=== PATIENT | male | born 1940 | race Caucasian/White ===

== ENCOUNTER 2017-02-24 10:42 | Emergency (ER) | payer OTHER ==
[~2017-02-24] VITALS: Ht 172.7 cm; Wt 74.9 kg
[~2017-02-24 10:42] MED LIST: ASPIRIN EC81 M1 PO; ASPIRIN325 PO; AUGMENTIN 875875 M1 PO; CELEBREX 200 M200 MG PO; CENTRUM SILVER1 EAC2 PO; CENTRUM TABLET1 EACH PO; CLARITIN10 MG PO; GABAPENTIN 100100 MG PO; HYDROCODON-ACE1 EAC7; HYDROCODON-ACE1 EAC7 PO; HYDROCODON-ACE1 EACH PO; HYDROCODONE-AP1 EAC6 PO; IRON325 PO; LATANOPROST 0.2.5 ML; LIPITOR10 MG PO; LORTAB PO; LUPRON DEPOT45 MG INJ; METAMUCIL PAC1 UDPKT PO; SORINE 80 MG TA80 M1 PO; TAMSULOSIN HCL0.4 M1; TRAMADOL 50 MG50 MG PO; XARELTO20 MG PO
[2017-02-24] MEDS ORDERED: ASPIR 8181 MG PO (11:15)
[2017-02-24] MEDS ORDERED: CENTRUM SILVER1 EAC4 PO (11:15)
== END 2017-02-24 11:36 | disposition home or self-care (01) ==
LOC: ER 10:42
DX: S05.12XA Contusion of eyeball and orbital tissues, left eye, initial encounter (principal); Z90.49 Acquired absence of other specified parts of digestive tract; Z98.890 Other specified postprocedural states; Z91.013 Allergy to seafood; X58.XXXA Exposure to other specified factors, initial encounter; Y93.89 Activity, other specified; Y92.89 Other specified places as the place of occurrence of the external cause; Y99.8 Other external cause status

== ENCOUNTER 2019-02-25 05:21 | Day surgery (SDC) | payer OTHER ==
[~2019-02-25] VITALS: Ht 172.7 cm; Wt 70.3 kg
[~2019-02-25 05:21] MED LIST changes: +ASPIR 8181 MG PO; +CENTRUM SILVER1 EAC4 PO; +TYLENOL325 MG PO
[2019-02-25 09:12] VITALS: BP 155/66
[2019-02-25] MEDS ORDERED: PERCOCET 7.5-31 EACH PO (12:06)
[2019-02-25 12:25] VITALS: BP 155/66
--- NOTE | 2019-03-02 14:35 | O ---
Formerly [facility] [place] [address] OPERATIVE REPORT Name: LAQUITA ALONZO Room #: DEP [facility] [place] M..#: [id number] Admission: 02/25/19 ������������������ Attend Phys: Florentin Dimas MD Discharge: 02/25/19 ������������������ Date of : 40 Report #: [id number] THIS REPORT FOR: //name// CC: Chalo Dimas DATE OF SERVICE: 02/25/2019 PREOPERATIVE DIAGNOSIS: Right second hammer toe. POSTOPERATIVE DIAGNOSIS: Right second hammer toe. PROCEDURE: Right second toe amputation. SURGEON: Florentin Dimas M.D. ANESTHESIA: General. ESTIMATED BLOOD LOSS: Minimal. TOURNIQUET TIME: 15 minutes. DESCRIPTION OF PROCEDURE: The patient brought to the operating room where he was placed under general anesthesia. Once under adequate general anesthesia, his right lower extremity was prepped and draped in sterile manner. The extremity was elevated, exsanguinated, tourniquet placed 300 mmHg. A fishmouth type incision was then made about the proximal phalanx of the second toe. This was dissected directly down to the bone. Exposure was made of the proximal phalanx and a sagittal saw was then used to transect the proximal phalanx. The toe was then and amputation was complete. The wound was irrigated copiously and closed with 3-0 nylon for the skin. The wound was dressed with Xeroform, 4 x 4s, and a sterile soft compressive dressing was placed. Tourniquet was let down at 15 minutes. Toes were pink and warm with good capillary refill. There were no complications from the procedure. The patient tolerated the procedure well and went to the recovery room without incident. ��������������������������������������������� <ELECTRONICALLY SIGNED> ���������������������������������������� By: Florentin Dimas MD ��������������������������������������������� 03/02/19 1435 1211 1228 Florentin Dimas MD /nt
== END 2019-02-25 13:10 | disposition home or self-care (01) ==
LOC: TBA 05:21 → OR 05:21
DX: M20.41 Other hammer toe(s) (acquired), right foot (principal); I48.92 Unspecified atrial flutter; R58 Hemorrhage, not elsewhere classified; E78.5 Hyperlipidemia, unspecified; Z91.013 Allergy to seafood; Z91.09 Other allergy status, other than to drugs and biological substances; Z90.49 Acquired absence of other specified parts of digestive tract; Z98.890 Other specified postprocedural states
CPT/HCPCS: 50010; 50101; 50386; 50951; 56527; 57091; 57178; 62110; 62900; 70005